=== PATIENT | male | born 1955 | race Caucasian/White ===

== ENCOUNTER 2024-05-14 17:26 | Outpatient (CLI) | payer MEDICARE, OTHER | END 2024-05-14 17:27 | disposition critical access hospital (66) | LOC: EMS 17:26 | DX: S49.92XA Unspecified injury of left shoulder and upper arm, initial encounter (principal); W11.XXXA Fall on and from ladder, initial encounter | CPT/HCPCS: A0425; A0427 ==

== ENCOUNTER 2024-05-14 17:36 | Emergency (ER) | payer MEDICARE, OTHER ==
--- NOTE | 2024-05-14 17:38 | ED Physician Documentation ---
PD HPI UPPER EXT INJURY - Stated complaint Stated Complaint: GLF/L SHOULDER INJ - History obtained from History obtained from: Patient, EMS - Additonal information Additional information: 68-year-old gentleman who is anticoagulated for history of DVT was working at his house fell backwards catching himself with the left shoulder. He has isolated shoulder injury with severe pain. Better somewhat after 250 mcg of f[address] on the way here, but still very uncomfortable. No other injuries. He is confident he did not have a head injury. PD PAST MEDICAL HISTORY - Present Medications Home Medications: Ambulatory Orders Medication Instructions Recorded Confirmed Apixaban [Eliquis] 5 mg PO BID #60 tab 05/14/24 Oxycodone HCl/Acetaminophen 1 - 2 each PO Q6H PRN #30 tablet 05/14/24 [Percocet 5-325 mg Tablet] - Allergies Allergies/Adverse Reactions: Allergies Allergy/AdvReac Type Severity Reaction Status Date / Time No Known Drug Allergies Allergy Verified 05/14/24 17:47 PD ED PE NORMAL - Vitals Vital signs reviewed: Yes - General General: Alert and oriented X 3, No acute distress - HEENT HEENT: PERRL, EOMI - Neck Neck: Supple, no meningeal sign, No bony TTP - Cardiac Cardiac: RRR, No murmur - Respiratory Respiratory: No respiratory distress, Clear bilaterally - Abdomen Abdomen: Non tender - Back Back: No CVA TTP, No spinal TTP - Derm Derm: Normal color, Warm and dry - Extremities Extremities: Other (Left shoulder there is a suggestion of a deformity and severe tenderness and cannot range it at all. He is having normal sensation over the deltoid and throughout the left hand with normal left hand strength.) - Neuro Neuro: Alert and oriented X 3, Normal speech Eye Opening: Spontaneous Motor: Obeys Commands Verbal: Oriented GCS Score: 15 Results - Vitals Vitals: Vital Signs - 24 hr 05/14/24 05/14/24 17:42 19:42 Temperature 35.9 C L Heart Rate 96 93 Respiratory 18 18 Rate Blood Pressure 158/86 H 170/90 H O2 Saturation 98 96 Oxygen O2 Source Room air - Rads (name of study) Left shoulder x-ray demonstrates a displaced proximal humeral fracture without definite dislocation Relevant Findings:: Final report received, EMP independent interpretation of test CT left upper extremity demonstrating comminuted, impacted, and partially displaced humeral head and neck fractures Relevant Findings:: Final report received, EMP independent interpretation of test PD Medical Decision Making - ED course ED course: 68-year-old gentleman presents after a fall with an isolated left shoulder injury. Prehospital concern was for dislocation, initial x-ray not clearly showing a dislocation but a fracture, but it was somewhat obfuscated by limited positioning and I sent him over for a CT as well which shows a comminuted fracture with shortening and overlapping fracture fragments of the head and neck of the proximal left humerus. He was administered divided doses of Dilaudid and a dose of Toradol with significant improvement in his pain but it was still severe. He lives for the most part in [place] and was planning to go back in a week. We had a long talk about disposition and orthopedic follow-up. Given the appearance of the imaging I would not be surprised if he ends up having a surgical procedure. This is not urgent but recommended follow-up within the week with an orthopedist, ideally 1 very adept at shoulders. It sounds like at this point he plans to return to [place] with a friend driving him in a sling with painkillers to seek orthopedic follow-up there. He was given a CD with his x-rays and CAT scan on them. Of note he also needed a refill on his Eliquis which he is taking for the ongoing treatment of a DVT. Departure - Departure Disposition: 01 Home, Self Care Clinical Impression: Humerus head fracture Qualifiers: Encounter type: initial encounter Fracture type: closed Laterality: left Qualified Code(s): S42.292A - Other displaced fracture of upper end of left humerus, initial encounter for closed fracture Condition: Good Record reviewed to determine appropriate education?: Yes Instructions: ED Fx Upper Ext Follow-Up: Orthopedic Care [Provider Group] - Within 1 week Prescriptions: Apixaban [Eliquis] 5 mg PO BID #60 tab Oxycodone HCl/Acetaminophen [Percocet 5-325 mg Tablet] 1 - 2 each PO Q6H PRN #30 tablet PRN Reason: pain Comments: You are seen today for an isolated left shoulder injury. You have a comminuted displaced and overlapping fracture of the proximal humerus. There is no dislocation. You should see a orthopedic surgeon, preferably 1 who specializes in shoulders within the week or so. Do not drink or drive while taking prescription pain medication. I sent the prescription electronically to the [facility] pharmacy at the corner of [facility] [address] [facility] here in [place]. You can use ibuprofen per package instructions in addition to the prescription pain killer. In case you do not choose to go back to [place] in short order the local orthopedic office is listed on this form and you can call them for follow-up as well. I am prescribing a short course of narcotic pain medication for you. These are potentially dangerous and addictive medications that should be used carefully. These medications may constipate you. Take an aqei-rgx-tumnqvg stool softener (docusate) twice daily with plenty of water while taking these medications. If you go 24 hours without a bowel movement, take qafy-zof-qgvwkcl miralax, per package instructions. Do not drink or drive while taking these medications. If you received narcotic or sedating medications while in the emergency department, do not drive for 24 hours. Store this medication in a safe, secure place and out of reach of children. It is a violation of federal law to give or sell this medication to another person or to use in a manner other than prescribed. The ED will not refill narcotic prescriptions, including prescriptions lost or stolen. To dispose of unwanted medications: 1. [facility] provides a drop box for medication in pill form only (no liquids) 8:00 am to 4:30 p.m. Friday-Friday in the lobby of the [facility], [address] [place] [address]. Empty pills into ziplock bag before disposal. Call [phone] for information. 2.[employer] is a free service available to all [facility] residents. Go to [email or web address] Note that many narcotic pain relievers also contain Tylenol/acetaminophen. Please ensure that your total dose of acetaminophen from all sources does not exceed 3 g (3000 mg) per day.
[2024-05-14] MEDS: HYDROmorphone 1 MG/ML CARPUJECT IVP STA ×3 (17:52→19:53)
[2024-05-14] MEDS: KETOROLAC 15 MG/ML VIAL IVP STA (17:52)
--- NOTE | 2024-05-14 18:51 | XRAY Report ---
PROCEDURE: Shoulder 2+V LT INDICATIONS: shoulder inj TECHNIQUE: 3 views of the shoulder were acquired. COMPARISON: None. FINDINGS: Bones: Impacted and comminuted humeral head and neck fracture. There is one full shaft with anterior displacement of the shaft fragment. No definite glenohumeral joint dislocation. Soft tissues: No suspicious soft tissue calcifications. The visualized lungs are within normal limi ts. IMPRESSION: Displaced proximal humeral fracture without definite shoulder dislocation. Reviewed by: Anju Luo MD on 05/14/2024 6:49 PM PDT Approved by: Anju Luo MD on 05/14/2024 6:49 PM PDT Station ID: [id number]
[2024-05-14] MEDS: oxyCODONE/ACET 5/325 Prepack 4 PO STA (19:52)
--- NOTE | 2024-05-14 20:13 | CT Report ---
PROCEDURE: Upper Extremity LT WO INDICATIONS: shoulder inj TECHNIQUE: Noncontrast 2 mm axial sections were acquired through the elbow joint, with coronal and sagittal refo rmats. For radiation dose reduction, the following was used: automated exposure control, adjustment of mA and/or kV according to patient size. COMPARISON: None. FINDINGS: Image quality: Excellent. Bones: There is a fracture of the humeral neck with anterior displacement of the humeral diaphysis b y 1 full shaft width. A comminuted fracture of the humeral head is seen predominantly involving the g reater tuberosity. There is minimal displacement of fragments, less than 1 cm. There is a degree of i mpaction by the posterior aspect of the humeral diaphysis. It appears that the articular surface of the humeral head has been rotated and is facing dorsal som red to the glenoid fossa in the axial view. No significant superior or inferior subluxation or disloc ation. There is no shoulder separation. No visible clavicle or scapular fracture. No visible rib frac tures.. Soft tissues: Subcutaneous contusion along the anterior shoulder. No significant intramuscular hemat jah or mass effect. The visible lung is fully inflated. IMPRESSION: Comminuted, impacted, and partially displaced humeral head and neck fracture. Reviewed by: Anju Luo MD on 05/14/2024 8:11 PM PDT Approved by: Anju uLo MD on 05/14/2024 8:11 PM PDT Station ID: [id number]
[2024-05-14 20:48] VITALS: BP 166/90; O2SAT 98
== END 2024-05-14 20:20 | disposition home or self-care (01) ==
LOC: ED 17:36
DX: S42.212A Unspecified displaced fracture of surgical neck of left humerus, initial encounter for closed fracture (principal); S42.292A Other displaced fracture of upper end of left humerus, initial encounter for closed fracture; W17.89XA Other fall from one level to another, initial encounter; Y93.H9 Activity, other involving exterior property and land maintenance, building and construction; Y92.008 Other place in unspecified non-institutional (private) residence as the place of occurrence of the external cause; I82.509 Chronic embolism and thrombosis of unspecified deep veins of unspecified lower extremity; Z79.01 Long term (current) use of anticoagulants
CPT/HCPCS: 73030; 73200; 96374; 96376; 99283; 99284; J1170